=== PATIENT | male | born 1965 | race African-American/Black ===

== ENCOUNTER 2023-03-23 22:44 | Emergency (ER) | payer OTHER, SELFPAY ==
[2023-03-24 01:40] LABS: #Eosinphils 0.3 10x3/uL (0.0-0.5); #Monocytes 0.5 10x3/uL (0.0-1.1); #Neutrophils 2.6 10x3/uL (1.5-8.4); %Basophils 0.7 % (0.0-2.0); %Eosinophils 6.1 % (0.0-6.0); %Lymphocytes 36.3 % (18.0-47.0); %Monocytes 9.4 % (0.0-10.0); %Neutrophils 47.3 % (40.0-75.0); Hemoglobin 14.2 g/dL (13.5-17.5); Mean Corpuscular HGB CONC 33.8 g/dL (32.0-36.0); Mean Corpuscular Hemoglobin 28.9 pg (27.0-33.0); Mean Corpuscular Volume 85.4 fl (81.2-95.1); Mean Platelet Volume 10.6 fl (7.4-10.4); Platelet Count 150 10x3/uL (150-450); RBC Distribution Width 13.5 % (11.5-14.5); Red Blood Cell (RBC) Count 4.92 10x6/uL (4.32-5.72); White Blood Cell (WBC) Count 5.6 10x3/uL (3.5-10.5)
== END 2023-03-24 02:31 | disposition home or self-care (01) ==
LOC: CSHERS 22:44
DX: J20.9 Acute bronchitis, unspecified (principal); I10 Essential (primary) hypertension
CPT/HCPCS: 36415; 71046; 85025

== ENCOUNTER 2023-09-21 14:31 | Emergency (ER) | payer OTHER ==
[2023-09-21 16:29] LABS: SARS-CoV-2 NAA Rapid Test Not Detected (NotDetected)
== END 2023-09-21 15:49 | disposition home or self-care (01) ==
LOC: CSHERS 14:31
DX: J30.2 Other seasonal allergic rhinitis (principal); I10 Essential (primary) hypertension
CPT/HCPCS: 99283

== ENCOUNTER 2023-09-27 14:43 | Emergency (ER) | payer OTHER ==
[2023-09-27] MEDS ORDERED: Cyclobenzaprine 10 MG TAB ONE (15:28)
[2023-09-27] MEDS ORDERED: Acetaminophen 325 MG TAB ONE (15:28)
== END 2023-09-27 17:10 | disposition home or self-care (01) ==
LOC: CSHERS 14:43
DX: M54.50 Low back pain, unspecified (principal); M25.552 Pain in left hip; I10 Essential (primary) hypertension; V89.2XXA Person injured in unspecified motor-vehicle accident, traffic, initial encounter
CPT/HCPCS: 72100

== ENCOUNTER 2023-10-13 06:56 | Emergency (ER) | payer OTHER ==
[2023-10-13] MEDS ORDERED: HYDROcodone/Acetaminophen 10/325 mg Tablet ONE (07:45)
[2023-10-13] MEDS ORDERED: Methocarbamol 500 MG TAB PO SCH (08:00)
[2023-10-13] MEDS ORDERED: Lidocaine 4% Patch TD SCH (08:00)
[2023-10-13] MEDS ORDERED: Transdermal Patch Removal TOP SCH (20:00)
== END 2023-10-13 11:48 | disposition home or self-care (01) ==
LOC: CSHERS 06:56
DX: S43.51XA Sprain of right acromioclavicular joint, initial encounter (principal); M75.31 Calcific tendinitis of right shoulder; I10 Essential (primary) hypertension; V89.2XXA Person injured in unspecified motor-vehicle accident, traffic, initial encounter

== ENCOUNTER 2024-01-03 01:21 | Emergency (ER) | payer OTHER ==
[2024-01-03] MEDS ORDERED: Ibuprofen 200 MG TAB ONE (02:44)
[2024-01-03] MEDS ORDERED: Doxycycline 100 MG CAP PO SCH (03:00)
== END 2024-01-03 03:13 | disposition home or self-care (01) ==
LOC: CSHERS 01:21
DX: L02.224 Furuncle of groin (principal); I10 Essential (primary) hypertension
CPT/HCPCS: 99283

== ENCOUNTER 2024-05-12 18:55 | Emergency (ER) | payer OTHER | END 2024-05-12 20:40 | disposition home or self-care (01) | LOC: CSHERS 18:55 | DX: M25.511 Pain in right shoulder (principal) | CPT/HCPCS: 99283 ==

== ENCOUNTER 2025-04-01 19:01 | Emergency (ER) | payer MEDICAID ==
[2025-04-01] MEDS ORDERED: diphenhydrAMINE 25 MG CAP ONE (20:48)
[2025-04-01] MEDS ORDERED: Prochlorperazine 10 MG/2 ML VIAL ONE (20:48)
[2025-04-01] MEDS ORDERED: Acetaminophen 500 MG TAB ONE (20:48)
[2025-04-01 21:34] LABS: #Basophils 0.03 10x3/uL (0.0-0.2); #Eosinophils 0.34 10x3/uL (0.0-0.5); #Monocytes 0.52 10x3/uL (0.0-1.1); #Neutrophils 1.96 10x3/uL (1.5-8.4); %Basophils 0.6 % (0.0-2.0); %Eosinophils 7.1 % (0.0-6.0); %Lymphocytes 40.3 % (18.0-47.0); %Monocytes 10.9 % (0.0-10.0); %Neutrophils 40.9 % (40.0-75.0); Hematocrit 43.5 % (38.8-50.0); Hemoglobin 14.4 g/dL (13.5-17.5); Mean Corpuscular Hemoglobin 28.3 pg (27.0-33.0); Mean Corpuscular Volume 85.6 fL (81.2-95.1); Platelet Count 163 10x3/uL (150-450); Red Blood Cell (RBC) Count 5.08 10x6/uL (4.32-5.72); White Blood Cell (WBC) Count 4.79 10x3/uL (3.5-10.5)
[2025-04-01 21:36] LABS: ALT (SGPT) 104 U/L (Less than 45); AST (SGOT) 67 U/L (11-34); Albumin 3.6 g/dL (3.1-4.5); Alkaline Phosphatase 52 U/L (40-110); Anion Gap 12 mmol/L (10-20); BUN (Urea Nitrogen) 24 mg/dL (8.4-25.7); Bilirubin, Total 0.2 mg/dL (0.3-1.2); Calc. Creatinine Clearance 0 mL/min (70-130); Calcium 9.3 mg/dL (7.8-10.44); Carbon Dioxide 27 mmol/L (23-31); Chloride 108 mmol/L (98-107); Globulin 2.7 g/dL (2.4-3.5); Glucose 97 mg/dL (80-115); Potassium 4.9 mmol/L (3.5-5.1); Sodium 142 mmol/L (136-145)
== END 2025-04-01 21:48 | disposition home or self-care (01) ==
LOC: CSHERS 19:01
DX: R51.9 Headache, unspecified (principal)
CPT/HCPCS: 70450; 71045; 80053; 85025; 87426; 96374; 96375; J0780